=== PATIENT | female | born 1950 | race Caucasian/White ===

== ENCOUNTER → 2016-09-03 | Outpatient (CLI) | payer MEDICARE ==
--- NOTE | 2016-09-03 21:18 | WWHP ---
DATE OF SERVICE: 09/03/2016. CHIEF COMPLAINT: Patient is here for her routine gynecologic exam and mammogram. HPI: This is a 66-year-old, G3, P3-0-0-4 with an LMP of 2008. The patient is without gynecologic complaints. PAST MEDICAL HISTORY: Hypothyroidism, elevated cholesterol and chronic hypertension. MEDICATIONS: 1. Cytomel 5 mg daily. 2. Synthroid 50 mcg daily. 3. Hyzaar 1 daily. 4. Simvastatin 20 mg daily. ALLERGIES: No known drug allergies. 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 SOCIAL HISTORY: She denies tobacco and drug use and has about 3 alcoholic drinks per week. She has been since 1972 and is retired. She works on a [employer] in [place]. REVIEW OF SYSTEMS: She has gained about 13 pounds over the last 2 years. She denies respiratory, cardiac, or GI problems. She denies maltreatment or falling. She also denies any problems with urinary incontinence. PHYSICAL EXAM: Blood pressure 115/79. Height 5 feet 6 inches. Weight 187 pounds. Temperature 99.3, pulse 99. This is a well-developed, well-nourished white female who is alert and oriented x3 in no acute distress. HEENT is within normal limits. NECK: Supple without mass or thyromegaly. CHEST AND LUNGS: Clear to auscultation. HEART: Regular rate and rhythm. Breasts are without mass or discharge. Axillary exam negative for adenopathy. BACK: Negative for CVA tenderness. ABDOMEN: Soft, nontender, without palpable masses. PELVIC EXAM: External genitalia reveals moderate atrophy without lesions. Cervix and vagina reveal mild to moderate atrophy without lesions. There is no evidence of prolapse. The uterus is midposition, nongravid size and nontender. There are no palpable adnexal masses or tenderness. Rectovaginal exam is negative for mass or tenderness and is negative for occult blood. EXTREMITIES: Nontender. IMPRESSION: A 66-year-old menopausal female with normal gynecologic exam. PLAN: 1. Pap smear was performed. 2. Self-breast examination was discussed. 3. Mammogram will be done today. 4. She states she does not get flu shots and is not planning on getting flu shots. 5. Osteoporosis prevention was discussed. We will plan on repeating bone density testing in one year. 6. She will return in one year.
--- NOTE | 2016-09-04 08:47 | MM ---
Reason for exam: screening (asymptomatic). Last mammogram was performed 1 year and 9 months ago. History: Patient is postmenopausal. Took progesterone for 1 year 6 months. Physical Findings: A clinical breast exam by your physician is recommended on an annual basis and results should be correlated with mammographic findings. MG 3D Screening Mammo W/Cad Bilateral CC and MLO view(s) were taken. Prior study comparison: November 28, 2014, bilateral MG screening mammo w CAD. There are scattered fibroglandular densities. There is no discrete abnormality. No significant changes when compared with prior studies. ASSESSMENT: Negative, BI-RAD 1 RECOMMENDATION: Routine screening mammogram of both breasts in 1 year.
== END | disposition home or self-care (01) ==
LOC: WWCWWP 12:34
PROVIDERS: ATTEND Obstetrics & Gynecology
DX: Z12.31 Encounter for screening mammogram for malignant neoplasm of breast (principal)
CPT/HCPCS: 77063; G0202

== ENCOUNTER → 2017-10-14 | Outpatient (CLI) | payer MEDICARE ==
[2017-10-14 14:27] VITALS: BP 118/63; PULSE 80; RESP 20; TEMP 98; BMI 30.6
--- NOTE | 2017-10-14 14:55 | P.HPOB ---
History of Present Illness H&P Date: 10/14/17 Chief Complaint: The patient is here for her routine gynecologic exam and mammogram. This is a 67-year-old with an LMP of 2007. The patient is without gynecologic complaints. Review of Systems Weight has been stable. She denies respiratory, cardiac, or G.I. problems. 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 She has had 3 vaginal deliveries with one twin delivery History of Any Multi-Drug Resistant Organisms: None Reported Past Surgical History: Tubal Ligation Additional Past Surgical History / Comment(s): Partial Thyroidectomy. Colonoscopy 2012 and this was her 2nd. Past Anesthesia/Blood Transfusion Reactions: No Reported Reaction Past Psychological History: Depression Smoking Status: Never smoker Past Alcohol Use History: Occasional (3 per week) Past Drug Use History: None Reported Additional History: She's been since 1972 and is retired and now lives on a [place]. - Past Family History Father Family Medical History: CVA/TIA Additional Family Medical History / Comment(s): Grandfather had colon cancer and grandmother had gastric cancer. Mother Additional Family Medical History / Comment(s): no significant history Medications and Allergies Home Medications Medication Instructions Recorded Confirmed Type Levothyroxine Sodium [Synthroid] 50 mcg PO DAILY 10/14/17 10/14/17 History Liothyronine Sodium [Cytomel] 0.5 mg PO DAILY 10/14/17 10/14/17 History Losartan/Hydrochlorothiazide 0.5 each PO DAILY 10/14/17 10/14/17 History [Hyzaar 50-12.5 Tablet] Sertraline [Zoloft] 50 mg PO DAILY 10/14/17 10/14/17 History Simvastatin [Zocor] 20 mg PO DAILY 10/14/17 10/14/17 History amLODIPine [Norvasc] 5 mg PO DAILY 10/14/17 10/14/17 History Allergies Allergy/AdvReac Type Severity Reaction Status Date / Time No Known Allergies Allergy Verified 10/14/17 14:35 Exam - Vital Signs Vital signs: Vital Signs Temp Pulse Resp BP 10/14/17 14:09 98 F 80 20 118/63 Intake and Output 0510/14/17 10/14/17 22:59 06:59 14:59 Other: Weight 83.461 kg Height 5'5", BMI 30.6. This is a well-developed well-nourished white female who is alert and oriented times 3 in no acute distress. HEENT: Within normal limits. NECK: Supple without mass or thyromegaly. CHEST AND LUNGS: Clear to auscultation. HEART: Regular rate and rhythm. BREASTS: Are without mass or discharge. AXILLARY EXAM: Negative for adenopathy. BACK: Negative for CVA tenderness. ABDOMEN: Soft, nontender, without palpable masses. PELVIC EXAM: external genitalia reveals moderate atrophy with benign appearing labial varicosities. Cervix and vagina appear normal with moderate atrophy. There is no unusual discharge. There is no evidence of prolapse. The uterus is midposition, nongravid size and nontender. There are no palpable adnexal masses or tenderness. RECTAL EXAM: rectovaginal exam is negative for mass or tenderness and is negative for occult blood. EXTREMITIES: Nontender. IMPRESSION: 1. 67-year-old menopausal female with normal gynecologic exam. PLAN: 1. Pap smear was deferred since she had a normal one last year. 2. Self breast awareness was discussed. 3. Screening mammogram will be done today. 4. Osteoporosis prevention was discussed. Bone density testing will be done today. 5. She will return in one year.
--- NOTE | 2017-10-14 16:28 | BD ---
EXAMINATION TYPE: MG DEXA axial skeleton. DATE OF EXAM: 10/14/2017 COMPARISON: NONE CLINICAL HISTORY: 67-year-old female postmenopausal without HRT Height: 5 FT 3 IN Weight: FRAX RISK QUESTIONS: Family History (Parent hip fracture): YES History of Fracture in Adulthood: YES Secondary Osteoporosis: RISK FACTORS HISTORY OF: Active: YES Postmenopausal woman: AGE 57 MEDICATIONS: Thyroid Medications: YES Which medication: SYNTHROID ,CITOMIL How Lon YEARS Additional Medications: SIMVASTATIN, SYNTROID, HYZAAR,NORVASC, CITOMIL Additional History: EXAM MEASUREMENTS: Bone mineral densitometry was performed using the [employer] System. Bone mineral density as measured about the Lumbar spine is: ----- L1-L4(G/cm2): 1.298 T Score Values are as follows: ----- L2: 0.2 ----- L3: 1.6 ----- L4: 0.8 ----- L1-L4: 1.0 BASELINE Bone mineral density about the R hip (g/cm2): 0.922 Bone mineral density about the L hip (g/cm2): 0.940 T Score values are as follows: -----R Neck: -0.8 -----L Neck: -0.7 -----R Total: 0.0 -----L Total: 0.3 BASELINE IMPRESSION: Normal (Values between +1 and -1 indicate normal bone mass). Consider repeating this study in 5 year s or sooner if there is some new clinical indication. NOTE: T-SCORE=SD OF THE YOUNG ADULT MEAN.
--- NOTE | 2017-10-15 11:13 | MM ---
Reason for exam: screening (asymptomatic). Last mammogram was performed 1 year and 1 month ago. History: Patient is postmenopausal. Took progesterone for 1 year 6 months. Physical Findings: A clinical breast exam by your physician is recommended on an annual basis and results should be correlated with mammographic findings. MG 3D Screening Mammo W/Cad Bilateral CC and MLO view(s) were taken. Prior study comparison: September 03, 2016, bilateral MG 3d screening mammo w/cad. November 28, 2014, bilateral MG screening mammo w CAD. The breast tissue is heterogeneously dense. This may lower the sensitivity of mammography. No suspicious abnormality. No significant changes when compared with prior studies. ASSESSMENT: Negative, BI-RAD 1 RECOMMENDATION: Routine screening mammogram of both breasts in 1 year.
== END ==
LOC: WWCWWP 13:44
PROVIDERS: ATTEND Obstetrics & Gynecology
DX: Z12.31 Encounter for screening mammogram for malignant neoplasm of breast (principal); Z78.0 Asymptomatic menopausal state
CPT/HCPCS: 77063; 77067; 77080

== ENCOUNTER → 2018-11-10 | Outpatient (CLI) | payer MEDICARE ==
[2018-11-10 08:18] VITALS: BP 122/75; PULSE 52; RESP 16; TEMP 98; BMI 29.2
--- NOTE | 2018-11-10 08:52 | P.HPOB ---
History of Present Illness H&P Date: 11/10/18 Chief Complaint: The patient is here for her routine gynecologic exam and ma mmogram. This is a 68-year-old with an LMP of 2007. The patient is without gynecologic complaints and denies any postmenopausal bleeding. Review of Systems She has lost about 8 pounds over the past year. She denies respiratory, cardiac and G.I. problems. She denies maltreatment or problems with falling. : she denies any significant problems with urinary leakage. Past Medical History Past Medical History: Hyperlipidemia, Hypertension, Thyroid Disorder Additional Past Medical History / Comment(s): Hypothyroid. 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 She has had 3 vaginal deliveries with one twin delivery History of Any Multi-Drug Resistant Organisms: None Reported Past Surgical History: Tubal Ligation Additional Past Surgical History / Comment(s): Partial Thyroidectomy. Colonoscopy 2012 (2nd, next after 8 yrs). Past Anesthesia/Blood Transfusion Reactions: No Reported Reaction Past Psychological History: Depression Smoking Status: Never smoker Past Alcohol Use History: Occasional (3 or 4 per week) Past Drug Use History: None Reported Additional History: She has been since 1972 and is retired. 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 - Past Family History Father Family Medical History: CVA/TIA Additional Family Medical History / Comment(s): Grandfather had colon cancer and grandmother had gastric cancer. Mother Additional Family Medical History / Comment(s): no significant history Medications and Allergies Home Medications Medication Instructions Recorded Confirmed Type Levothyroxine Sodium [Synthroid] 50 mcg PO DAILY 10/14/17 11/10/18 History Liothyronine Sodium [Cytomel] 0.5 mg PO DAILY 10/14/17 11/10/18 History Losartan/Hydrochlorothiazide 0.5 each PO DAILY 10/14/17 11/10/18 History [Hyzaar 50-12.5 Tablet] Sertraline [Zoloft] 50 mg PO DAILY 10/14/17 11/10/18 History Simvastatin [Zocor] 20 mg PO DAILY 10/14/17 11/10/18 History amLODIPine [Norvasc] 5 mg PO DAILY 10/14/17 11/10/18 History Ubidecarenone [Co Q-10] 100 mg PO 11/10/18 History Allergies Allergy/AdvReac Type Severity Reaction Status Date / Time No Known Allergies Allergy Verified 11/10/18 08:18 Exam Vital Signs Temp Pulse Resp BP Pulse Ox 11/10/18 08:11 98.0 F 52 L 16 122/75 100 Intake and Output 11/09/18 11/10/18 11/10/18 22:59 06:59 14:59 Other: Weight 79.832 kg Height 5'5", weight 176 pounds, BMI 29.3. This is a well-developed well-nourished white female who is alert and oriented times 3 in no acute distress. HEENT: Within normal limits. NECK: Supple without mass or thyromegaly. CHEST AND LUNGS: Clear to auscultation. HEART: Regular rate and rhythm. BREASTS: Are without mass or discharge. AXILLARY EXAM: Negative for adenopathy. BACK: Negative for CVA tenderness. ABDOMEN: Soft, nontender, without palpable masses. PELVIC EXAM: Normal external genitalia with moderate atrophy. Cervix and vagina appear normal with moderate atrophy. The cervix is somewhat stenotic secondary to atrophy. There is no unusual discharge. There is no evidence of prolapse. The uterus is midposition, nongravid size and nontender. There are no palpable adnexal masses or tenderness. RECTAL EXAM: recto vaginal exam is negative for mass or tenderness and is negative for occult blood. EXTREMITIES: Nontender. IMPRESSION: 1. 68-year-old menopausal female with normal gynecologic exam. PLAN: 1. Pap smear was performed. If this one is negative, we will consider discontinuing Pap smears since she is over 35 years of age and a negative Pap smear would make 3 negative Pap smears in the past 10 years. She states she has no history of abnormal Pap smears. 2. Self breast awareness was discussed with the patient. 3. Screening mammogram will be done today. 4. Osteoporosis prevention was discussed. I have stressed the importance of adequate calcium, vitamin D and regular exercise. Recommended amounts of calcium and vitamin D were also discussed. She had a normal bone density test done in 2018. This will be repeated after 6 years. 5. She plans to get a flu shot in the fall. She has not gotten done in the past. 6.She was advised to return in one year for her annual well woman exam.
--- NOTE | 2018-11-11 12:16 | MM ---
Reason for exam: screening (asymptomatic). Last mammogram was performed 1 year and 1 month ago. History: Patient is postmenopausal. Took progesterone for 1 year 6 months. Physical Findings: A clinical breast exam by your physician is recommended on an annual basis and results should be correlated with mammographic findings. MG 3D Screening Mammo W/Cad Bilateral CC and MLO view(s) were taken. Prior study comparison: October 14, 2017, bilateral MG 3d screening mammo w/cad. September 03, 2016, bilateral MG 3d screening mammo w/cad. There are scattered fibroglandular densities. There is no discrete abnormality. ASSESSMENT: Negative, BI-RAD 1 RECOMMENDATION: Routine screening mammogram of both breasts in 1 year.
== END ==
LOC: WWCWWP 07:44
PROVIDERS: ATTEND Obstetrics & Gynecology
DX: Z12.31 Encounter for screening mammogram for malignant neoplasm of breast (principal)
CPT/HCPCS: 77063; 77067

== ENCOUNTER 2019-03-17 09:49 | Day surgery (SDC) | payer MEDICARE ==
[2019-03-12 15:05] VITALS: BMI 27.4
[~2019-03-17 09:49] MED LIST: LACTATED RINGERS 1,000 ML IV SCH; LIDOCAINE 1% 20 ML VIAL (10MG/ML) FOR IV START INTRADERMA PRN
[2019-03-17 10:10] VITALS: RESP 16; TEMP 97.8
[2019-03-17] MEDS ORDERED: PROPOFOL 10 MG/ML 20 ML VIAL IV ONE (10:23)
--- NOTE | 2019-03-17 10:44 | P.PCN ---
Date of Procedure: 03/17/19 Procedure(s) Performed: BRIEF HISTORY: Patient is a 68-year-old pleasant white female scheduled for an elective colonoscopy as a part of screening for colorectal neoplasia. PROCEDURE PERFORMED: Colonoscopy with snare polypectomy. PREOPERATIVE DIAGNOSIS: Screening for colon cancer. IV sedation per Anesthesia. PROCEDURE: After informed consent was obtained, the patient, was brought into the endoscopy unit. IV sedation was administered by Anesthesia under continuous monitoring. Digital rectal examination was normal. Initially the Olympus CF-160 flexible video colonoscope was then inserted in the rectum, gradually advanced into the cecum without any difficulty. Careful examination was performed as the scope was gradually being withdrawn. Ileocecal valve and the appendiceal orifice were visualized and appeared normal. Prep was excellent. Mucosa of the cecum, ascending colon, transverse colon appeared normal. In the descending colon there was a 1 cm broad-based polyp that was removed by snare polypectomy. Rest of the, descending colon, sigmoid colon, and rectum appeared normal. Retrofle xion was performed in the rectum and weight 2 internal hemorrhoids were seen. The patient tolerated the procedure well. IMPRESSION: 1 cm broad-based descending colon polyp status post polypectomy Grade 2 internal hemorrhoids RECOMMENDATIONS: Findings of this examination were discussed with the patient as well as a family. She was advised to follow with the biopsy results. If the biopsy shows an adenoma she can have a repeat colonoscopy in 3 years.
[2019-03-17 11:08] VITALS: BP 121/77; PULSE 69
== END 2019-03-17 11:20 | disposition home or self-care (01) ==
LOC: ORWHC2ENDO 09:49
PROVIDERS: ATTEND Internal Medicine Gastroenterology
DX: Z12.11 Encounter for screening for malignant neoplasm of colon (principal); D12.4 Benign neoplasm of descending colon; K64.1 Second degree hemorrhoids; I10 Essential (primary) hypertension; E78.5 Hyperlipidemia, unspecified; E07.9 Disorder of thyroid, unspecified; Z79.890 Hormone replacement therapy; Z79.899 Other long term (current) drug therapy
CPT/HCPCS: 88305; 45385; J2704

== ENCOUNTER → 2020-04-14 | Outpatient (CLI) | payer MEDICARE | END | disposition home or self-care (01) | LOC: LABWHC1 10:27 | PROVIDERS: ATTEND Family Medicine | DX: R05 Cough (principal) | CPT/HCPCS: U0003; C9803 ==

== ENCOUNTER → 2020-11-20 | Outpatient (CLI) | payer MEDICARE ==
--- NOTE | 2020-11-21 07:14 | XR ---
EXAMINATION TYPE: XR chest 2V DATE OF EXAM: 11/20/2020 COMPARISON: NONE HISTORY: Chest tightness x2 weeks TECHNIQUE: Frontal and lateral views of the chest are obtained. FINDINGS: There is no focal air space opacity, pleural effusion, or pneumothorax seen. The cardiac silhouette size is within normal limits. IMPRESSION: No acute cardiopulmonary process.
== END | disposition home or self-care (01) ==
LOC: RADXRMAIN 16:01
PROVIDERS: ATTEND Nurse Practitioner Family
DX: R07.89 Other chest pain (principal)
CPT/HCPCS: 71046

== ENCOUNTER → 2020-12-19 | Outpatient (CLI) | payer MEDICARE | END | disposition home or self-care (01) | LOC: CPPFTMAIN 11:56 | PROVIDERS: ATTEND Family Medicine | DX: Z09 Encounter for follow-up examination after completed treatment for conditions other than malignant neoplasm (principal); Z86.16 Personal history of COVID-19 | CPT/HCPCS: 94060; 94726; 94729 ==

== ENCOUNTER → 2020-12-20 | Outpatient (CLI) | payer MEDICARE ==
--- NOTE | 2020-12-21 16:51 | ECHOF ---
Referral Reason:R06.00 Dyspnea MEASUREMENTS -------- HEIGHT: 165.1 cm WEIGHT: 83.9 kg BP: IVSd: 1.2 cm (0.6 - 1.1) LVIDd: 3.0 cm (3.9 - 5.3) LVPWd: 1.0 cm (0.6 - 1.1) EDV(Teich): 35 ml IVSs: 1.7 cm LVIDs: 1.9 cm LVPWs: 1.9 cm %IVS Thck: 40 % ESV(Teich): 11 ml EF(Teich): 68 % %FS: 36 % SV(Teich): 23 ml IVC: 13.93 mm LALs A4C: 4.9 cm LAAs A4C: 17.4 cm LAESV A-L A4C: 53 ml LAESV MOD A4C: 49 ml LALs A2C: 5.0 cm LAAs A2C: 13.6 cm LAESV A-L A2C: 31 ml LAESV MOD A2C: 29 ml LAESV(A-L): 41 ml LAESV Index (A-L): 21.36 ml/m Ao Diam: 3.1 cm (2.0 - 3.7) LA Diam: 2.3 cm (2.7 - 3.8) AV Cusp: 2.3 cm (1.5 - 2.6) EPSS: 0.4 cm MV E Alberto: 1.07 m/s MV A Alberto: 0.90 m/s MV E/A Ratio: 1.18 MV PHT: 0 ms MR Vmax: 1.20 m/s MR maxP.74 mmHg AV Vmax: 1.39 m/s AV maxP.70 mmHg TR Vmax: 1.98 m/s TR maxP.73 mmHg RAP: 5.00 mmHg RVSP: 20.73 mmHg MV EF SLOPE: 91.95 mm/s (70 - 150) MV EXCURSION: 16.66 mm (> 18.000) FINDINGS -------- This was a technically adequate study. The left ventricular size is normal. Left ventricular wall thickness is normal. Overall left vent ricular systolic function is normal with, an EF between 55 - 60 %. Normal LAP Grade 1 Diastolic Dys function. The right ventricle is normal in size. The left atrial size is normal. Normal LA size by volume 22+/-6 ml/m2. The right atrial size is normal. Interatrial and interventricular septum intact. The aortic valve is trileaflet and appears structurally normal. The mitral valve is normal. There is trace mitral regurgitation. The tricuspid valve appears structurally normal. Mild tricuspid regurgitation present. Right vent ricular systolic pressure is normal at < 35 mmHg. There is no pulmonic regurgitation present. The aortic root size is normal. Normal inferior vena cava with normal inspiratory collapse consistent with estimated right atrial pre ssure of 5 mmHg. There is no pericardial effusion. CONCLUSIONS -------- 1. The left ventricular size is normal. 2. Left ventricular wall thickness is normal. 3. Overall left ventricular systolic function is normal with, an EF between 55 - 60 %. 4. Normal LAP Grade 1 Diastolic Dysfunction. 5. There is trace mitral regurgitation. 6. Mild tricuspid regurgitation present. 7. There is no pericardial effusion. CHILD PSYCHOLOGY TEACHER: Cortney Reid RDCS
--- NOTE | 2020-12-21 17:35 | P.STRESS ---
- Stress Test Note Stress Test Results/Findings: Exam Performed: EH stress test Exam Date: 12/20/20 Reason for Exam: DYSPNEA Height: 5 ft 5 in Weight: 185 kg Protocol: TRIPP Stage: 2 Duration of Exercise: 6:51 Resting Heart Rate: 69 Resting Blood Pressure: 161/87 Maximum Achieved Heart Rate: 144 Maximum Achieved Blood Pressure: 161/87 85% PMHR: 128 100% PMHR: 151 METS: 8.3 Technologist Comment: Stress Test Results/Findings: Baseline heart is 69 beats a minute, Baseline blood pressure elevated 161/87 mmHg at base Patient exercised on a Tripp protocol for 6 minutes 51 seconds Peak heart rate 144 beats a minute Occasional PVCs and ventricular couplets noted No nonsustained ventricular tachycardia No evidence for ischemia at this workload level
--- NOTE | 2020-12-22 09:06 | ECHOS ---
Stress Test Results/Findings: Exam Performed: stress test Exam Date: 12/20/20 Reason for Exam: DYSPNEA Height: 5 ft 5 in Weight: 185 kg Protocol: TRIPP Stage: 2 Duration of Exercise: 6:51 Resting Heart Rate: 69 Resting Blood Pressure: 161/87 Maximum Achieved Heart Rate: 144 Maximum Achieved Blood Pressure: 161/87 85% PMHR: 128 100% PMHR: 151 METS: 8.3 Technologist Comment: Stress Test Results/Findings: Baseline heart is 69 beats a minute, Baseline blood pressure elevated 161/87 mmHg at base Patient exercised on a Tripp protocol for 6 minutes 51 seconds Peak heart rate 144 beats a minute Occasional PVCs and ventricular couplets noted No nonsustained ventricular tachycardia No evidence for ischemia at this workload level MTDD
== END | disposition home or self-care (01) ==
LOC: RADNMMAIN 08:34
PROVIDERS: ATTEND Family Medicine
DX: R06.00 Dyspnea, unspecified (principal); R03.0 Elevated blood-pressure reading, without diagnosis of hypertension
CPT/HCPCS: 93017; 93306

== ENCOUNTER → 2021-03-28 | Outpatient (CLI) | payer MEDICARE ==
--- NOTE | 2021-03-29 09:59 | MM ---
Reason for exam: screening (asymptomatic). Last mammogram was performed 2 years and 5 months ago. History: Patient is postmenopausal. Took progesterone for 1 year 6 months. Physical Findings: A clinical breast exam by your physician is recommended on an annual basis and results should be correlated with mammographic findings. MG 3D Screening Mammo W/Cad Bilateral CC and MLO view(s) were taken. Prior study comparison: November 10, 2018, bilateral MG 3d screening mammo w/cad. October 14, 2017, bilateral MG 3d screening mammo w/cad. There are scattered fibroglandular densities. There is no discrete abnormality. No significant changes when compared with prior studies. ASSESSMENT: Negative, BI-RAD 1 RECOMMENDATION: Routine screening mammogram of both breasts in 1 year.
== END | disposition home or self-care (01) ==
LOC: RADMAMWWP 07:41
PROVIDERS: ATTEND Family Medicine
DX: Z12.31 Encounter for screening mammogram for malignant neoplasm of breast (principal)
CPT/HCPCS: 77063; 77067

== ENCOUNTER → 2022-03-28 | Outpatient (CLI) | payer MEDICARE ==
--- NOTE | 2022-03-28 10:24 | XR ---
EXAMINATION TYPE: XR cervical spine limited DATE OF EXAM: 03/28/2022 TECHNIQUE: Frontal, lateral, and open mouth view of the cervical spine are obtained. HISTORY: R20.2 paresthesia of skin COMPARISON: None FINDINGS: The cervical spine is visualized in its entirety from C1 thru the top of T1 level, there i s grade 1 anterolisthesis C3 on C4. There is grade 1 anterolisthesis C7 on T1. The pre-vertebral soft tissue appears within normal limits. The C1-C2 articulation is within normal limits on the open pao th view. Vertebral body heights are maintained. Mild to moderate disc space narrowing and mild spurri ng C4-C5 level is present. Mild to moderate spurring C5-C6 level. Mild to moderate disc space narrowi ng and moderate anterior spurring C6-C7 level. Mild disc space narrowing and spurring C7-T1 level. Ov erlying soft tissue is unremarkable. IMPRESSION: As above.
--- NOTE | 2022-03-28 10:25 | XR ---
EXAMINATION TYPE: XR lumbar spine 2 or 3V DATE OF EXAM: 03/28/2022 CLINICAL HISTORY: Paresthesia of skin. TECHNIQUE: Frontal and lateral images of the lumbar spine are obtained. COMPARISON: None FINDINGS: There are 5 lumbar type vertebral bodies identified. There is grade 1 anterolisthesis L4 o n L5. Vertebral body heights and disc space heights are fairly well-preserved. Mild to moderate multi level anterior and lateral spurring is present. Overlying soft tissue is unremarkable. IMPRESSION: As above.
== END | disposition home or self-care (01) ==
LOC: RADXRMAIN 09:42
PROVIDERS: ATTEND Family Medicine
DX: R20.2 Paresthesia of skin (principal)
CPT/HCPCS: 72040; 72100

== ENCOUNTER → 2022-04-05 | Outpatient (CLI) | payer MEDICARE ==
--- NOTE | 2022-04-08 20:34 | MM ---
Reason for Exam: Screening (asymptomatic). Last screening mammogram was performed 12 month(s) ago. Patient History: Menarche at age 14. First Full-Term at age 24. Postmenopausal. Progesterone for 1 year, 6 months. Risk Values: Hayley 5 year model risk: 1.5%. NCI Lifetime model risk: 4.5%. Prior Study Comparison: 10/14/2017 Bilateral Screening Mammogram, [facility]. 11/10/2018 Bilateral Screening Mammogram, [facility]. 03/28/2021 Bilateral Screening Mammogram, [facility]. Tissue Density: There are scattered fibroglandular densities. Findings: Analyzed By CAD. Unchanged asymmetric density subareolar left MLO view. There is no suspicious group of microcalcifications or new suspicious mass in either breast. Overall Assessment: Benign, BI-RAD 2 Management: Screening Mammogram of both breasts in 1 year. 1. Patient should continue monthly self breast exams. 2. A clinical breast exam by your physician is recommended on an annual basis. 3. This exam should not preclude additional follow-up of suspicious palpable abnormalities. Electronically signed and approved by: Angelique Lerner M.D. Radiologist
== END | disposition home or self-care (01) ==
LOC: RADMAMWWP 10:54
PROVIDERS: ATTEND Family Medicine
DX: Z12.31 Encounter for screening mammogram for malignant neoplasm of breast (principal); Z78.0 Asymptomatic menopausal state
CPT/HCPCS: 77063; 77067

== ENCOUNTER 2022-05-28 09:31 | Day surgery (SDC) | payer MEDICARE ==
[2022-05-24 11:49] VITALS: BMI 29.7
[~2022-05-28 09:31] MED LIST changes: +LIDOCAINE 1% (10MG/ML) FOR IV START INTRADERMA PRN; -LIDOCAINE 1% 20 ML VIAL (10MG/ML) FOR IV START INTRADERMA PRN; +ONDANSETRON 4 MG/2 ML VIAL IVP PRN
[2022-05-28 11:01] VITALS: TEMP 97.9
[2022-05-28] MEDS ORDERED: PROPOFOL 10 MG/ML 20 ML VIAL IV ONE (11:22)
[2022-05-28] MEDS ORDERED: LIDOCAINE 2% INJ 20 MG/ML (2 ML VIAL) ONE (11:22)
--- NOTE | 2022-05-28 11:41 | P.PCN ---
Date of Procedure: 05/28/22 Procedure(s) Performed: BRIEF HISTORY: Patient is a 71-year-old pleasant white female scheduled for an elective colonoscopy as a part of evaluation of prior history of colon polyps/screening for colon cancer. Last colonoscopy was 3 years ago and was noted to have an adenoma. PROCEDURE PERFORMED: Colonoscopy with biopsy. PREOPERATIVE DIAGNOSIS: Screening for colon cancer/history of colon polyps.. IV sedation per Anesthesia. PROCEDURE: After informed consent was obtained, the patient, was brought into the endoscopy unit. IV sedation was administered by Anesthesia under continuous monitoring. Digital rectal examination was normal. Initially the Olympus CF-160 flexible video colonoscope was then inserted in the rectum, gradually advanced into the cecum without any difficulty. Careful examination was performed as the scope was gradually being withdrawn. Ileocecal valve and the appendiceal orifice were visualized and appeared normal. Prep was excellent. Mucosa of the cecum, ascending colon, transverse colon appeared normal. The descending colon there was a 5 minute a polyp that was removed by cold biopsy. Rest, descending colon, sigmoid colon, and rectum appeared normal. Retroflexion was performed in the rectum and no lesions were seen. The patient tolerated the procedure well. IMPRESSION: 5 mm ascending colon polyp status post cold biopsy Scattered sigmoid diverticulosis. RECOMMENDATIONS: Findings of this examination were discussed with the patient as well as a family.. was advised to follow with the biopsywith the biopsy adenoma she can have a repeat colonoscopy in 5 years.
[2022-05-28 12:11] VITALS: BP 133/70; PULSE 58; RESP 20
== END 2022-05-28 12:12 | disposition home or self-care (01) ==
LOC: ORWHC2ENDO 09:31
PROVIDERS: ATTEND Internal Medicine Gastroenterology
DX: Z12.11 Encounter for screening for malignant neoplasm of colon (principal); D12.4 Benign neoplasm of descending colon; K57.30 Diverticulosis of large intestine without perforation or abscess without bleeding; I10 Essential (primary) hypertension; E78.5 Hyperlipidemia, unspecified; G47.33 Obstructive sleep apnea (adult) (pediatric); Z99.89 Dependence on other enabling machines and devices; E03.9 Hypothyroidism, unspecified; Z79.890 Hormone replacement therapy; Z79.02 Long term (current) use of antithrombotics/antiplatelets; Z79.899 Other long term (current) drug therapy; Z98.890 Other specified postprocedural states
CPT/HCPCS: 88305; 45380; J2704; J2001

== ENCOUNTER → 2022-10-29 | Outpatient (CLI) | payer MEDICARE ==
--- NOTE | 2022-10-29 17:55 | BD ---
EXAMINATION TYPE: Axial Bone Density DATE OF EXAM: 10/29/2022 CLINICAL HISTORY: 72 years old Female. ICD-10 CODE: Z78.0 ASYMPTOMATIC MENOPAUSAL STATE Height: 63.5 Weight: 197.3 FRAX RISK QUESTIONS: Alcohol (3 or more units per day): no Family History (Parent hip fracture): mother Glucocorticoids (More than 3mos): no History of Fracture in Adulthood: Tib-Fib Secondary Osteoporosis: 1. Type 1 Diabetes: no 2. Hyperthyroidism: no 3. Menopause before 45: no 4. Malnutrition: no 5. Chronic liver disease: no Rheumatoid Arthritis: no Current Tobacco Use: no RISK FACTORS HISTORY OF: Hip Fracture (Right/Left): no Spine Fracture: no History of Wrist Fracture: no Surgery to Spine/Hip(right/left)/Wrist (right/left): no Family History of Osteoporosis: mother Active: yes Diet low in dairy products/other sources of calcium: no Postmenopausal woman: yes Take estrogen and/or progesterone medications: no Lost more than 2 inches in height since high school: no Frequent falls: no Poor Health: no Hyperparathyroidism: no Adrenal Insufficiency: no MEDICATIONS: Prednisone or other steroids: no Thyroid Medications: Synthroid How Long: past 10 years Osteoporosis Medications: no Additional Medications: BP Meds, Cholesterol Meds, Additional History: EXAM MEASUREMENTS: Bone mineral densitometry was performed using the [employer]. Bone mineral density as measured about the Lumbar spine is: ----- L1-L4(G/cm2): 1.245 T Score Values are as follows: ----- L1: 0.2 ----- L2: 0.2 ----- L3: 1.3 ----- L4: 0.2 ----- L1-L4: 0.5 Z Score Values are as follows: ----- L1: 1.1 ----- L2: 1.0 ----- L3: 2.2 ----- L4: 1.1 ----- L1-L4: 1.4 Bone mineral density has: decreased -4.1 % since study of: 10/14/2017 Bone mineral density about the R hip (g/cm2): 0.958 Bone mineral density about the L hip (g/cm2): 1.006 T Score values are as follows: -----R Neck: -1.2 -----L Neck: -0.9 -----R Total: -0.4 -----L Total: 0.0 Z Score values are as follows: -----R Neck: 0.0 -----L Neck: 0.3 -----R Total: 0.5 -----L Total: 0.9 Bone mineral density has: decreased -4.4 % since study of: 10/14/2017 FRAX%s: The graph provided illustrates a 20.9% chance for a major osteoporotic fx and a 3.9% chance f or the hips probability for fx in 10 years time. IMPRESSION: Osteopenia (T Score between -2.5 and -1). There is slightly increased risk of fracture and the patient may be considered for treatment. Re-Screen 2-5 years. NOTE: T-SCORE=SD OF THE YOUNG ADULT MEAN.
== END | disposition home or self-care (01) ==
LOC: RADBDWWP 08:35
PROVIDERS: ATTEND Family Medicine
DX: M85.89 Other specified disorders of bone density and structure, multiple sites (principal); Z78.0 Asymptomatic menopausal state
CPT/HCPCS: 77080

== ENCOUNTER → 2023-02-20 | Outpatient (CLI) | payer MEDICARE ==
--- NOTE | 2023-02-20 09:33 | CT ---
EXAMINATION TYPE: CT abdomen pelvis wo con DATE OF EXAM: 02/20/2023 COMPARISON: None HISTORY: pelvic pain CT DLP: 1002 mGycm Examination of the solid and hollow viscera is limited given the lack of contrast. FINDINGS: LUNG BASES: No evidence for nodule. No evidence for infiltrate. Small hiatal hernia noted. LIVER/GB: The gallbladder is unremarkable. No space-occupying hepatic lesion. PANCREAS: No pancreatic mass identified. No inflammatory process seen. SPLEEN: No evidence for splenomegaly. No intrasplenic lesions seen. ADRENALS: No adrenal nodules identified. No evidence for thickening. KIDNEYS: Probable parapelvic renal cysts are seen bilaterally. No nephrolithiasis. No hydronephrosis. BOWEL: Appendix has a normal appearance. No evidence of bowel obstruction. No inflammatory process. Lymph nodes: No evidence for adenopathy greater than 1 cm. Abdominal aorta: Atheromatous changes seen. No evidence for aneurysm. Genital organs: No significant abnormality. Other: No significant abnormality. IMPRESSION: 1. small hiatal hernia. 2. Probable parapelvic renal cysts seen bilaterally.
== END | disposition home or self-care (01) ==
LOC: RADCTMAIN 07:19
PROVIDERS: ATTEND Family Medicine
DX: K44.9 Diaphragmatic hernia without obstruction or gangrene (principal); R10.2 Pelvic and perineal pain
CPT/HCPCS: 74176

== ENCOUNTER → 2023-04-08 | Outpatient (CLI) | payer MEDICARE ==
[2023-04-08 08:04] VITALS: BP 129/70; PULSE 62; RESP 16; TEMP 98
--- NOTE | 2023-04-08 08:54 | P.HPOB ---
History of Present Illness H&P Date: 04/08/23 Chief Complaint: The patient is here for her routine gynecologic exam and ma mmogram. This is a 72-year-old 004 with an LMP of 2007. The patient has been having intermittent pelvic pains that she states feels like ovulation pains and has noticed it greater on the left side. She states that they come and go. She had a CT scan of the abdomen and pelvis on 02/20/2023 ordered by her PCP. This showed probable parapelvic renal cysts bilaterally and showed normal gynecologic pathology. She states the symptoms seem to improve after the CT scan, but he seemed to be noticeable again. She states the pain can be as much as 6 out of 10. She seems to notice it more just before a bowel movement. She has experienced mild urinary urgency without dysuria or significant frequency. She did have a urine test by her PCP about 6 weeks ago and she states she was treated for a UTI at that time. She is otherwise without gynecologic complaints and denies any postmenopausal bleeding. Review of Systems The patient has gained 18 pounds over the last 4 years. She denies respiratory, cardiac, or G.I. problems. Past Medical History Past Medical History: Hyperlipidemia, Hypertension, Thyroid Disorder Additional Past Medical History / Comment(s): Hypothyroid. 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 History of Any Multi-Drug Resistant Organisms: None Reported Past Surgical History: Tubal Ligation Additional Past Surgical History / Comment(s): Partial Thyroidectomy. Colonoscopy Past Anesthesia/Blood Transfusion Reactions: No Reported Reaction Past Psychological History: No Psychological Hx Reported Smoking Status: Never smoker Past Alcohol Use History: Occasional (About 3 drinks per week.) Past Drug Use History: None Reported Additional History: She has been since 1972 and is retired. 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 - Past Family History Father Family Medical History: CVA/TIA Additional Family Medical History / Comment(s): Grandfather had colon cancer and grandmother had gastric cancer. Mother Family Medical History: Coronary Artery Disease (CAD), Hyperlipidemia, Hypertension Additional Family Medical History / Comment(s): no significant history Medications and Allergies Home Medications Medication Instructions Recorded Confirmed Type Levothyroxine Sodium [Synthroid] 50 mcg PO DAILY 10/14/17 04/08/23 History Liothyronine Sodium [Cytomel] 0.5 mg PO DAILY 10/14/17 04/08/23 History Losartan/Hydrochlorothiazide 1 each PO DAILY 10/14/17 04/08/23 History [Hyzaar 50-12.5 Tablet] Sertraline [Zoloft] 50 mg PO DAILY 10/14/17 04/08/23 History Simvastatin [Zocor] 40 mg PO HS 10/14/17 04/08/23 History Ezetimibe [Zetia] 10 mg PO DAILY 04/08/23 04/08/23 History Allergies Allergy/AdvReac Type Severity Reaction Status Date / Time No Known Allergies Allergy Verified 04/08/23 07:52 Exam Vital Signs Temp Pulse Resp BP Pulse Ox 04/08/23 07:54 98 F 62 16 129/70 96 Intake and Output 04/07/23 04/08/23 04/08/23 22:59 06:59 14:59 Other: Weight 87.997 kg Height 5 feet 4 inches, weight 194 pounds, BMI 33.3 This is a well-developed well-nourished white female who is alert and oriented times 3 in no acute distress. HEENT: Within normal limits. NECK: Supple without mass or thyromegaly. CHEST AND LUNGS: Clear to auscultation. HEART: Regular rate and rhythm. BREASTS: Are without mass or discharge. AXILLARY EXAM: Negative for adenopathy. BACK: Negative for CVA tenderness. ABDOMEN: Soft, nontender, without palpable masses. PELVIC EXAM: Normal external genitalia with mild atrophy. Cervix and vagina appear normal mild atrophy. There is no unusual discharge. There is mild uterine tenderness which seems to be noticed more on her left side. There is no evidence of prolapse. The uterus is midposition, and nongravid size. There are no palpable adnexal masses however, there is mild bilateral adnexal tenderness. RECTAL EXAM: rectovaginal exam is negative for mass or tenderness and is negative for occult blood. EXTREMITIES: Nontender. IMPRESSION: 1. 72-year-old menopausal female with recent intermittent pelvic pains greater on the left side with mild pelvic tenderness on exam today. CT scan done on 02/20/2023 did not seem to indicate any gynecologic pathology. 2. Mild urinary urgency. PLAN: 1. Pap smears have been discontinued. 2. Self breast awareness was discussed with the patient. We have also discussed symptoms associated with inflammatory breast cancer. 3. Screening mammogram will be done today. 4. Osteoporosis prevention was discussed. I have stressed the importance of adequate calcium, vitamin D and regular exercise. Recommended amounts of calcium and vitamin D were also discussed. 5. Pelvic ultrasound was recommended and the order slip was given to the patient for this. 6. Urine has been obtained for urinalysis and culture with sensitivities. 7. She was advised to try to determine if her symptoms are related to any activities and she is to try to avoid those types of activities if they seem to make her symptoms worse. 8. She was advised to return in one year for her annual well woman exam and as needed.
[2023-04-09 02:29] LABS: Appearance,Urine Clear (Clear); Bilirubin,Urine Negative (Negative); Blood,Urine Negative (Negative); Color,Urine Yellow (Yellow); Ketones,Urine Negative (Negative); Nitrite,Urine Negative (Negative); PH, Urine 7.5; Specific Gravity,Urine 1.005 (1.001-1.030); Urobilinogen,Urine 0.2 E.U./DL
--- NOTE | 2023-04-09 09:15 | MM ---
Reason for Exam: Screening (asymptomatic). Last screening mammogram was performed 12 month(s) ago. Patient History: Menarche at age 14. First Full-Term at age 24. Postmenopausal. Progesterone for 1 year, 6 months. Risk Values: Hayley 5 year model risk: 1.6%. NCI Lifetime model risk: 4.3%. Prior Study Comparison: 11/10/2018 Bilateral Screening Mammogram, [facility]. 03/28/2021 Bilateral Screening Mammogram, [facility]. 04/05/2022 Bilateral MG 3D screening mammo w/cad, [facility]. Tissue Density: The breast tissue is almost entirely fat. Findings: Analyzed By CAD. There is no suspicious group of microcalcifications or new suspicious mass. Overall Assessment: Negative, BI-RAD 1 Management: Screening Mammogram of both breasts in [address] [facility] will attempt to contact patient to return for supplemental views and ultrasound if indicated. Patient should continue monthly self-breast exams. A clinical breast exam by your physician is recommended on an annual basis. This exam should not preclude additional follow-up of suspicious palpable abnormalities. Note on Hayley scores and lifetime risk: 1. A Hayley score greater than 3% is considered moderate risk. If this is the case, consider specialist referral to assess eligibility for a risk reducing agent. 2. If overall lifetime risk for the development of breast cancer is 20% or higher, the patient may qualify for future screening with alternating mammogram and breast MRI. Electronically signed and approved by: Jaylen Lagunas DO
--- NOTE | 2023-04-09 14:01 | P.PN ---
Progress Note - Text Progress Note Date: 04/09/23 OUTPATIENT FOLLOW-UP NOTE TEST(S)/RESULTS: Urinalysis done on 04/08/2023 was negative. METHOD OF NOTIFICATION: The patient was notified by phone on 04/09/2023. PATIENT COMMENTS: DIAGNOSIS: Negative urinalysis with mild urinary urgency. DISCUSSION: We will await the urine culture. The patient has scheduled the pelvic ultrasound on 04/24/2023. PLAN: As above.
== END ==
LOC: WWCWWP 07:42
PROVIDERS: ATTEND Obstetrics & Gynecology
DX: Z12.31 Encounter for screening mammogram for malignant neoplasm of breast (principal); R39.15 Urgency of urination; R10.2 Pelvic and perineal pain; E03.9 Hypothyroidism, unspecified; E78.5 Hyperlipidemia, unspecified; I10 Essential (primary) hypertension; M85.80 Other specified disorders of bone density and structure, unspecified site; Z79.890 Hormone replacement therapy; Z78.0 Asymptomatic menopausal state; Z79.899 Other long term (current) drug therapy
CPT/HCPCS: 77063; 77067; 81003; 87086

== ENCOUNTER → 2023-04-24 | Outpatient (CLI) | payer MEDICARE ==
--- NOTE | 2023-04-24 21:16 | US ---
EXAMINATION TYPE: US pelvis complete transvag DATE OF EXAM: 04/24/2023 COMPARISON: CT 02/20/23 CLINICAL INDICATION: Female, 72 years old with history of R10.2 PELVIC PAIN R68.89; pelvis pain and t enderness TECHNIQUE: Transvaginal (TV) and Transabdominal (TA) . Transabdominal sonographic images of the pel vis were acquired. Transvaginal sonographic images were medically necessary to better assess the fol lowing anatomy: Ovaries Date of LMP: 2007 EXAM MEASUREMENTS: Uterus: 6.0x3.1x4.4 cm Endometrial Stripe: 0.3 cm Right Ovary: obscured by bowel Left Ovary: 1.3x0.9x0.8 cm 1. Uterus: Anteverted heterogenous with calcs throughout 2. Endometrium: small 0.3cm cystic area noted near fundus 3. Right Ovary: Obscured by overlying bowel gas 4. Left Ovary: wnl 5. Bilateral Adnexa: Obscured by overlying bowel gas 6. Posterior cul-de-sac: wnl exam slightly limited by bowel IMPRESSION: No evidence for acute abdominal process 1. Endometrium within normal limits for thickness.
== END | disposition home or self-care (01) ==
LOC: RADUSWWP 15:38
PROVIDERS: ATTEND Obstetrics & Gynecology
DX: R10.2 Pelvic and perineal pain (principal); R68.89 Other general symptoms and signs
CPT/HCPCS: 76830; 76856

== ENCOUNTER → 2024-06-28 | Outpatient (CLI) | payer MEDICARE ==
--- NOTE | 2024-06-28 13:07 | MM ---
Reason for Exam: Screening (asymptomatic). Last mammogram was performed 1 year(s) and 3 month(s) ago. Patient History: Menarche at age 14. First Full-Term at age 24. Postmenopausal. Progesterone for 1 year, 6 months. Risk Values: Hayley 5 year model risk: 1.6%. NCI Lifetime model risk: 4.1%. Prior Study Comparison: 03/28/2021 Bilateral Screening Mammogram, [facility]. 04/05/2022 Bilateral MG 3D screening mammo w/cad, [facility]. 04/08/2023 Bilateral MG 3D screening mammo w/cad, [facility]. Tissue Density: There are scattered areas of fibroglandular density. Findings: Analyzed By CAD. There is no suspicious group of microcalcifications or new suspicious mass in either breast. Overall Assessment: Negative, BI-RAD 1 Management: Screening Mammogram of both breasts in 1 year. . Patient should continue monthly self-breast exams. A clinical breast exam by your physician is recommended on an annual basis. This exam should not preclude additional follow-up of suspicious palpable abnormalities. Note on Hayley scores and lifetime risk: 1. A Hayley score greater than 3% is considered moderate risk. If this is the case, consider specialist referral to assess eligibility for a risk reducing agent. 2. If overall lifetime risk for the development of breast cancer is 20% or higher, the patient may qualify for future screening with alternating mammogram and breast MRI. [facility], , 06/28/2024 1:06 PM. Electronically signed and approved by: Angelique Lerner M.D. Radiologist
== END | disposition home or self-care (01) ==
LOC: RADMAMWWP 09:03
PROVIDERS: ATTEND Family Medicine
DX: Z12.31 Encounter for screening mammogram for malignant neoplasm of breast (principal); Z78.0 Asymptomatic menopausal state; R92.323 Mammographic fibroglandular density, bilateral breasts
CPT/HCPCS: 77063; 77067

== ENCOUNTER → 2024-12-21 | Outpatient (CLI) | payer MEDICARE ==
--- NOTE | 2024-12-21 21:38 | XR ---
EXAMINATION TYPE: XR chest 2V DATE OF EXAM: 12/21/2024 12:33 PM COMPARISON: 11/20/2020 CLINICAL INDICATION: Female, 74 years old with history of R61 GENERALIZED HYPERHIDROSIS, , TECHNIQUE: Frontal and lateral views FINDINGS: Heart normal size. Aorta and pulmonary vasculature within normal limits. Mild interstitial prominence as a chronic appearance. No consolidation or pleural effusion. Bulky anterior endplate spondylosis m id thoracic spine. IMPRESSION: Mild interstitial prominence has a chronic appearance, possible bronchitis or chronic asthma. Otherwi se, no acute process seen. [facility], Workstation: Kandice-DANIS, 12/21/2024 9:36 PM
== END | disposition home or self-care (01) ==
LOC: LABWHC1 12:16
PROVIDERS: ATTEND Family Medicine
DX: R61 Generalized hyperhidrosis (principal); J98.4 Other disorders of lung
CPT/HCPCS: 71046

== ENCOUNTER → 2024-12-24 | Outpatient (CLI) | payer MEDICARE ==
--- NOTE | 2024-12-27 08:06 | BD ---
EXAMINATION TYPE: Axial Bone Density DATE OF EXAM: 12/24/2024 CLINICAL HISTORY: 74 years old Female. ICD-10 CODE: M81.0 AGE-RELATED OSTEOPOROSIS W/O CURRENT PATHO LO , Additional History: Height: 5 ft 3 in Weight: 186 FRAX RISK QUESTIONS: Alcohol (3 or more units per day): no Family History (Parent hip fracture): yes Glucocorticoids (More than 3mos): no (Ex: prednisone, prednisolone, methylprednisolone, dexamethasone, and hydrocortisone). History of Fracture in Adulthood: yes Secondary Osteoporosis: 1. Type 1 Diabetes: no 2. Hyperthyroidism: nodules 3. Menopause before 45: no 4. Malnutrition: no 5. Chronic liver disease: no Rheumatoid Arthritis: no Current Tobacco Use: no RISK FACTORS HISTORY OF: Surgery to Spine/Hip(right/left)/Wrist (right/left): no MEDICATIONS: Thyroid Medications: yes Which medication: synthroid How Lon years Osteoporosis Medications: none EXAM MEASUREMENTS: Bone mineral densitometry was performed using the [employer] System. Bone mineral density as measured about the Lumbar spine is: ----- L1-L4(G/cm2): 1.310 T Score Values are as follows: ----- L1: 1.8 ----- L2: 0.3 ----- L3: 1.5 ----- L4: 0.6 ----- L1-L4: 1.1 Z Score Values are as follows: ----- L1: 2.9 ----- L2: 1.4 ----- L3: 2.6 ----- L4: 1.7 ----- L1-L4: 2.2 Bone mineral density has: increased 5.2 % since study of: 2022 Bone mineral density about the R hip (g/cm2): 0.858 Bone mineral density about the L hip (g/cm2): 0.870 T Score values are as follows: -----R Neck: -1.3 -----L Neck: -1.2 -----R Total: -0.7 -----L Total: -0.4 Z Score values are as follows: -----R Neck: 0.1 -----L Neck: 0.2 -----R Total: 0.5 -----L Total: 0.8 Bone mineral density has: decreased -4.4 % since study of: 2022 FRAX%s: The graph provided illustrates a 22.4 % chance for a major osteoporotic fx and a 7.2 % chance for the hips probability for fx in 10 years time. IMPRESSION: Osteopenia (T Score between -2.5 and -1). There is slightly increased risk of fracture and the patient may be considered for treatment. Re-Screen 2-5 years. NOTE: T-SCORE=SD OF THE YOUNG ADULT MEAN. [facility], , 12/27/2024 8:03 AM
== END | disposition home or self-care (01) ==
LOC: RADBDWWP 14:27
PROVIDERS: ATTEND Family Medicine
DX: M81.0 Age-related osteoporosis without current pathological fracture (principal); M85.89 Other specified disorders of bone density and structure, multiple sites
CPT/HCPCS: 77080